=== PATIENT | male | born 1965 | race Caucasian/White ===

== ENCOUNTER 2018-12-31 02:35 | Observation (INO) | payer SELFPAY ==
[2018-12-31 04:23] LABS: ABSOLUTE EOSINOPHILS # (AUTO) 0.1 10^3/uL (0.0-0.6); ABSOLUTE LYMPHOCYTES (AUTO) 0.6 10^3/uL (0.5-4.7); ABSOLUTE MONOCYTES (AUTO) 0.6 10^3/uL (0.1-1.4); ABSOLUTE NEUT (AUTO) 3.4 10^3/uL (1.7-8.2); BASOPHILS % (AUTO) 0.6 % (0-2); EOSINOPHILS % (AUTO) 2.9 % (0-6); HEMATOCRIT 43.3 % (37.9-51.0); HEMOGLOBIN 14.9 g/dL (13.5-17.0); LYMPHOCYTES % (AUTO) 12.8 % (13-45); MEAN CORPUSCULAR HEMOGLOBIN 31.6 pg (27.0-33.4); MEAN CORPUSCULAR HGB CONC 34.4 g/dL (32.0-36.0); MEAN CORPUSCULAR VOLUME 92 fl (80-97); MONOCYTES % (AUTO) 11.9 % (3-13); PLATELET COUNT 101 10^3/uL (150-450); RED BLOOD COUNT 4.71 10^6/uL (4.35-5.55); RED CELL DISTRIBUTION WIDTH 14.5 % (11.5-14.0); SEGMENTED NEUTROPHILS % (AUTO) 71.8 % (42-78); TOTAL CELLS COUNTED % (AUTO) 100 %; WHITE BLOOD COUNT 4.8 10^3/uL (4.0-10.5)
[2018-12-31 04:38] LABS: ALANINE AMINOTRANSFERASE 29 U/L (21-72); ALBUMIN 3.3 g/dL (3.5-5.0); ALKALINE PHOSPHATASE 119 U/L (38-126); ANION GAP 7 (5-19); ASPARTATE AMINO TRANSFERASE 43 U/L (17-59); BILIRUBIN,DIRECT 0.6 mg/dL (0.0-0.4); BILIRUBIN,TOTAL 2.8 mg/dL (0.2-1.3); BLOOD UREA NITROGEN 7 mg/dL (7-20); CALCIUM 8.8 mg/dL (8.4-10.2); CARBON DIOXIDE 25 mmol/L (22-30); CHLORIDE 106 mmol/L (98-107); GLUCOSE 134 mg/dL (75-110); LIPASE 204.3 U/L (23-300); POTASSIUM 4.2 mmol/L (3.6-5.0); SODIUM 137.5 mmol/L (137-145); TOTAL PROTEIN 7.3 g/dL (6.3-8.2)
[2018-12-31 04:41] LABS: APPEARANCE,URINE SLIGHTLY-CLOUDY; BILIRUBIN,URINE SMALL (NEGATIVE); COLOR,URINE AMBER; GLUCOSE, URINE NEGATIVE (NEGATIVE); KETONES,URINE NEGATIVE (NEGATIVE); LEUKOCYTE ESTERASE,URINE NEGATIVE (NEGATIVE); NITRITE,URINE NEGATIVE (NEGATIVE); PROTEIN,URINE 100 mg/dL (NEGATIVE); URINE SPECIFIC GRAVITY 1.026
--- NOTE | 2018-12-31 05:26 | ER Document Report ---
ED General <AVNI SEGOVIA - Last Filed: 12/31/18 05:39> - General TRAVEL OUTSIDE OF THE [place] IN LAST 30 DAYS: No <ISABELL DONOVAN - Last Filed: 12/31/18 07:46> - General Chief Complaint: Abdominal Swelling Stated Complaint: STOMACH PAIN Time Seen by Provider: 12/31/18 05:11 Primary Care Provider: KOMAL,MAIRA [NO LOCAL MD] - Follow up as needed Notes: 53-year-old male with no past medical history presents to the emergency department with chief complaint of abdominal swelling that is gotten progressively worse in the last 13 days. He states that his abdomen is extremely distended and tight and had a has gained 30 pounds in the last 13 days. He has slowly lost his appetite over the last 5 weeks and is having difficulty drinking 2 ensures a day. He says that he has been "self-medicating" with Ex-Lax and prune juice and when he takes those he said he has loose bowel movements. He denies any fevers or chills, complains of some nausea but no vomiting, denies acute shortness of breath or chest pain, denies heavy alcohol use, and denies eating a high fat diet. (ISABELL DONOVAN) Past Medical History - Social History Smoking Status: Current Every Day Smoker Family History: None <ISABELL DONOVAN - Last Filed: 12/31/18 07:46> Review of Systems - Review of Systems Constitutional: See HPI EENT: No symptoms reported Cardiovascular: See HPI Respiratory: See HPI Gastrointestinal: See HPI Genitourinary: No symptoms reported Male Genitourinary: No symptoms reported Musculoskeletal: No symptoms reported Skin: No symptoms reported Hematologic/Lymphatic: No symptoms reported Neurological/Psychological: No symptoms reported <ISABELL DONOVAN - Last Filed: 12/31/18 07:46> Physical Exam <ISABELL DONOVAN - Last Filed: 12/31/18 07:46> - Vital signs Vitals: Temp Pulse Resp BP Pulse Ox 97.9 F 95 16 155/100 H 95 12/31/18 02:44 12/31/18 02:44 12/31/18 02:44 12/31/18 02:44 12/31/18 02:44 - Notes Notes: PHYSICAL EXAMINATION: Reviewed vital signs and charting by RN GENERAL: Alert, interacts well. No acute distress. HEAD: Normocephalic, atraumatic. EYES: Pupils equal and round. Extraocular movements intact. ENT: Oral mucosa moist, tongue midline. NECK: Full range of motion. Trachea midline. LUNGS: Clear to auscultation bilaterally, no wheezes, rales, or rhonchi. No respiratory distress. 1+ bilateral lower extremity pitting edema. HEART: Regular rate and rhythm. No murmur ABDOMEN: Significant distention, abdomen is tense, there is a rash over his right abdomen that is hyperpigmented plaque, bowel sounds present, no fluid wave EXTREMITIES: Moves all 4 extremities spontaneously. No edema, No cyanosis. PSYCH: Normal affect, normal mood. SKIN: Warm, dry, normal turgor. No rashes or lesions noted. (ISABELL DONOVAN) Course - Laboratory Result Diagrams: 12/31/18 04:15 12/31/18 04:15 <AVNI SEGOVIA - Last Filed: 12/31/18 05:39> - Laboratory Result Diagrams: 12/31/18 04:15 12/31/18 04:15 <ISABELL DONOVAN - Last Filed: 12/31/18 07:46> - Re-evaluation Re-evalutation: 12/31/18 05:39 Patient was initially evaluated by the physician assistant professor of anthropology, Lance. He has become evaluate the patient's patient has a large amount of abdominal distention. Nikia ent has abdominal distention which has been worsening over last several weeks. He has what appears to be a very ascitic abdomen. I did do a bedside ultrasound he does have a large amount of fluid in the abdomen consistent with ascites. He has no history of alcohol abuse. Has not seen a doctor in 30 years. He is currently stable. Bilirubin is slightly elevated however the remainder of his liver enzymes are not that high. I have ordered an INR to further evaluate the function of his liver. Have ordered a CT scan with IV contrast. Concerns at this time could be that the patient has undiagnosed ZHENG leading to cirrhosis leading to his ascites. Differential also includes cancer which is leading to his ascites. Dictation of this chart was performed using voice recognition software; th erefore, there may be some unintended grammatical errors. (AVNI SEGOVIA) 12/31/18 07:44 I briefly discussed patient with Heidy Buchanan NP, who accepted patient to medical floor. Please see Dr. Segovia's course above. CT abdomen pelvis showed cirrhotic appearing liver with splenomegaly and significant ascites. INR 1.45. (ISABELL DONOVAN) - Vital Signs Vital signs: Temp Pulse Resp BP Pulse Ox 97.9 F 95 16 155/100 H 95 12/31/18 02:44 12/31/18 02:44 12/31/18 02:44 12/31/18 02:44 12/31/18 02:44 - Laboratory Laboratory results interpreted by me: 12/31/18 12/31/18 12/31/18 04:00 04:15 04:15 RDW 14.5 H Plt Count 101 L Lymphocytes % 12.8 L PT Glucose 134 H Total Bilirubin 2.8 H Direct Bilirubin 0.6 H Albumin 3.3 L Urine Protein 100 H Urine Blood LARGE H Urine Bilirubin SMALL H Urine Urobilinogen 4.0 H 12/31/18 04:15 RDW Plt Count Lymphocytes % PT 17.8 H Glucose Total Bilirubin Direct Bilirubin Albumin Urine Protein Urine Blood Urine Bilirubin Urine Urobilinogen Discharge <AVNI SEGOVIA - Last Filed: 12/31/18 05:39> - Discharge Admitting Provider: Tom (Hospitalist) Unit Admitted: Medical Floor <ISABELL DONOVAN - Last Filed: 12/31/18 07:46> - Discharge Clinical Impression: Abdominal distention, Splenomegaly Ascites Qualifiers: Ascites type: other type Qualified Code(s): R18.8 - Other ascites Condition: Stable Disposition: ADMITTED INPATIENT Referrals: LOCALMD,NO [NO LOCAL MD] - Follow up as needed
[2018-12-31 06:21] LABS: INTERNATIONAL RATION (INR) 1.45; PROTHROMBIN TIME 17.8 SEC (11.4-15.4)
--- NOTE | 2018-12-31 06:39 | RADIOLOGY REPORT (SQ) ---
EXAM DESCRIPTION: CT ABDOMEN PELVIS WITH IV CONTRAST COMPLETED DATE/TME: 12/31/2018 05:37 CLINICAL HISTORY: 53 years, Male, abdominal distention with ascites. CREAT 0.56 COMPARISON: None. TECHNIQUE: Axial CT images of the abdomen and pelvis were obtained after the administration of IV contrast. DLP 3107 Images stored on PACS. All CT scanners at this facility use dose modulation, iterative reconstruction, and/or weight based dosing when appropriate to reduce radiation dose to as low as reasonably achievable (ALARA). [facility]: Dose Right [facility]: CareDose [facility]: Dose Right [facility]: Teradose 4D [facility]: Buy buy tea LIMITATIONS: None. FINDINGS: The lung bases are clear. The liver appears cirrhotic. The gallbladder contains some layering hyperdensity, which may represent stones or sludge. The spleen is enlarged measuring 16.4 cm. The pancreas and adrenal glands appear unremarkable. Both kidneys appear unremarkable with no evidence of hydronephrosis. There are mild atherosclerotic calcifications of the abdominal aorta. There is a large amount of ascites. No free air is detected. No pathologically enlarged lymph nodes are detected. The stomach and small bowel appear unremarkable. The appendix appears unremarkable. Diverticulosis is noted. The urinary bladder and prostate gland are unremarkable. There are no lytic or blastic bone lesions. IMPRESSION: Cirrhotic appearing liver with splenomegaly and a large amount of ascites. Layering hyperdensity within the gallbladder, which may represent stones or sludge. Diverticulosis without evidence of diverticulitis. TECHNICAL DOCUMENTATION: Quality ID # 436: Final reports with documentation of one or more dose reduction techniques (e.g., Automated exposure control, adjustment of the mA and/or kV according to patient size, use of iterative reconstruction technique) copyright 2011 [employer]- All Rights Reserved
[2018-12-31] MEDS ORDERED: ALBUTEROL SULFATE 0.083% NEB 2.5 MG/3 ML AMPUL NEB PRN (08:17)
[2018-12-31] MEDS ORDERED: ONDANSETRON HCL INJ/PF 4 MG/2 ML SDV IV PRN (08:17)
[2018-12-31] MEDS ORDERED: PROMETHAZINE HCL INJ 25 MG/1 ML VIAL IV PRN (08:17)
[2018-12-31] MEDS ORDERED: MAG HYDROX/AL HYDROX/SIMETH SUSP 30 ML UDCUP PO PRN (08:17)
[2018-12-31] MEDS ORDERED: DOCUSATE SODIUM 100 MG CAPSULE PO SCH (10:00)
[2018-12-31 13:28] LABS: FLUID APPEARANCE SLIGHTLY HAZY; FLUID COLOR LIGHT YELLOW; FLUID SOURCE ABDOMEN; FLUID TYPE PERITONEAL; FLUID VISCOSITY LIQUID
[2018-12-31] MEDS: ALBUMIN HUMAN 12.5 GM/50 ML RTUINJ IV SCH ×3 (13:39→15:35)
--- NOTE | 2018-12-31 14:10 | RADIOLOGY REPORT (SQ) ---
EXAM DESCRIPTION: U/S ABD PARACENTESIS COMPLETED DATE/TIME: 12/31/2018 1:20 pm REASON FOR STUDY: ascites COMPARISON CT abdomen pelvis 12/31/2018 LIMITATIONS: None. PROCEDURE: After obtaining informed consent, the patient was brought to the ultrasound suite. The p rocedure was performed with the patient on a gurney. Ultrasound was used to identify a prominent poc ket of ascites in the left lower quadrant. An appropriate access site was selected. The patient was prepped and draped in usual sterile fashion. The access site was anesthetized with 6 mL 1% lidocai ne. A Fabg-Q-Lhbudbbw needle was advanced into the fluid. After aspiration of fluid the needle, the catheter was advanced off the needle into the fluid. A total of 10,000 mL of clear straw-colored fl uid was removed. The patient tolerated the procedure well left the department in satisfactory conditi on. IMPRESSION: Successful ultrasound-guided paracentesis, specimen was sent for culture, cell count, an d cytology. Patient received IV albumin infusion after the large volume paracentesis. COMMENT: Patient medication list reviewed: Yes- Quality ID# [id number]:Eligible professional attests to doc umenting in the medical record they obtained, updated, or reviewed the patient's current medications. TECHNICAL DOCUMENTATION: JOB ID: [id number] [employer]- All Rights Reserved Reading location - IP/workstation name: [email or web address]
[2018-12-31 16:36] VITALS: BP 135/70
--- NOTE | 2018-12-31 19:49 | PDOC H&P ---
History of Present Illness Admission Date/PCP: 12/31/18 07:53 Patient complains of: Abdominal discomfort History of Present Illness: MARIO LIZAMA is a 53 year old male who reports a past medical history significant only for tobacco dependence, however, with admitted low healthcare utilization. Patient presented to the emergency department today with a complai nt of several weeks of progressively worsening abdominal distention resulting in early satiety. Evaluation in the emergency department revealed Mild hypertension but otherwise stable vital signs, normal CBC, INR 1.45, mildly elevated bili and low albumin but normal AST/ALT/alk phos, overall unremarkable urinalysis, and CT of the abdomen demonstrating cirrhotic appearing liver with splenomegaly a large volume ascites. The patient was referred to the hospitalist service for admission and management of the above-stated complaints and findings. Past Medical History Cardiac Medical History: Reports: None Pulmonary Medical History: Reports: None Neurological Medical History: Reports: None Renal/ Medical History: Reports: None Malignancy Medical History: Reports: None Musculoskeltal Medical History: Reports: None Skin Medical History: Reports: None Psychiatric Medical History: Reports: Depression - lost last MAR 2018, Substance Abuse, Tobacco Dependency Traumatic Medical History: Reports: None Hematology: Reports: None Infectious Medical History: Reports: None Past Surgical History Past Surgical History: Reports: Other - reports had an extra toe removed at age 65 years old Social History Information Source: Patient Lives with: Alone Smoking Status: Current Every Day Smoker Cigarettes Packs Per Day: 0 - smokes 3 to 4 cigarettes daily Cigars Per Day: 0 Pipes Per Day: 0 Number of Years Smokin Frequency of Alcohol Use: Rare Hx Recreational Drug Use: Yes Drugs: Marijuana Hx Prescription Drug Abuse: No - Advance Directive Resuscitation Status: Do Not Resuscitate Family History Family History: Reviewed & Not Pertinent Parental Family History Reviewed: Yes Children Family History Reviewed: Yes Sibling(s) Family History Reviewed.: Yes Medication/Allergy Home Medications: No Home Medications 12/31/18 Allergies/Adverse Reactions: strawberry Allergy (Verified 12/31/18 08:07) Review of Systems Constitutional: PRESENT: anorexia. ABSENT: chills, fever(s), headache(s), weight gain, weight loss Eyes: ABSENT: visual disturbances Ears: ABSENT: hearing changes Cardiovascular: PRESENT: edema. ABSENT: chest pain, dyspnea on exertion, orthropnea, palpitations Respiratory: ABSENT: cough, hemoptysis Gastrointestinal: PRESENT: abdominal pain, bloating. ABSENT: constipation, diarrhea, hematemesis, hematochezia, nausea, vomiting Genitourinary: ABSENT: dysuria, hematuria Musculoskeletal: ABSENT: joint swelling Integumentary: ABSENT: rash, wounds Neurological: ABSENT: abnormal gait, abnormal speech, confusion, dizziness, focal weakness, syncope Psychiatric: ABSENT: anxiety, depression, homidical ideation, suicidal ideation Endocrine: ABSENT: cold intolerance, heat intolerance, polydipsia, polyuria Hematologic/Lymphatic: ABSENT: easy bleeding, easy bruising Physical Exam Vital Signs: Temp Pulse Resp BP Pulse Ox 98.3 F 93 16 135/70 H 93 12/31/18 15:12 12/31/18 15:12 12/31/18 15:12 12/31/18 15:12 12/31/18 15:12 Intake & Output 12/30/18 12/31/18 01/01/19 06:59 06:59 06:59 Intake Total 1024 Balance 1024 Weight 124 kg General appearance: PRESENT: no acute distress, cooperative, thin - Loss of subcutaneous fat, bilateral temporal wasting, well-developed, well-nourished Head exam: PRESENT: atraumatic, normocephalic Eye exam: PRESENT: conjunctiva pink, EOMI, PERRLA. ABSENT: scleral icterus Ear exam: PRESENT: normal external ear exam Mouth exam: PRESENT: moist, tongue midline Teeth exam: PRESENT: poor dentation Neck exam: ABSENT: carotid bruit, JVD, lymphadenopathy, thyromegaly Respiratory exam: PRESENT: clear to auscultation carlos, symmetrical, unlabored. ABSENT: rales, rhonchi, wheezes Cardiovascular exam: PRESENT: RRR, +S1, +S2. ABSENT: diastolic murmur, rubs, systolic murmur Pulses: PRESENT: normal dorsalis pedis pul Vascular exam: PRESENT: normal capillary refill GI/Abdominal exam: PRESENT: ascites, diminished bowel sounds, distended, firm. ABSENT: guarding, mass, organolmegaly, rebound, tenderness Rectal exam: PRESENT: deferred Extremities exam: PRESENT: full ROM, pedal edema. ABSENT: calf tenderness, clubbing Neurological exam: PRESENT: alert, awake, oriented to person, oriented to place, oriented to time, oriented to situation, CN II-XII grossly intact. ABSENT: motor sensory deficit Psychiatric exam: PRESENT: appropriate affect, normal mood. ABSENT: homicidal ideation, suicidal ideation Skin exam: PRESENT: dry, intact, warm. ABSENT: cyanosis, rash Results Laboratory Results: 12/31/18 04:15 12/31/18 04:15 12/31/18 12/31/18 12/31/18 04:00 04:15 04:15 WBC 4.8 RBC 4.71 Hgb 14.9 Hct 43.3 MCV 92 MCH 31.6 MCHC 34.4 RDW 14.5 H Plt Count 101 L Seg Neutrophils % 71.8 Lymphocytes % 12.8 L Monocytes % 11.9 Eosinophils % 2.9 Basophils % 0.6 Absolute Neutrophils 3.4 Absolute Lymphocytes 0.6 Absolute Monocytes 0.6 Absolute Eosinophils 0.1 Absolute Basophils 0.0 Sodium 137.5 Potassium 4.2 Chloride 106 Carbon Dioxide 25 Anion Gap 7 BUN 7 Creatinine 0.56 Est GFR ( Amer) > 60 Est GFR (Non-Af Amer) > 60 Glucose 134 H Calcium 8.8 Total Bilirubin 2.8 H AST 43 ALT 29 Alkaline Phosphatase 119 Total Protein 7.3 Albumin 3.3 L Lipase 204.3 Urine Color LALO Urine Appearance SLIGHTLY-CLOUDY Urine pH 5.0 Ur Specific Colora 1.026 Urine Protein 100 H Urine Glucose (UA) NEGATIVE Urine Ketones NEGATIVE Urine Blood LARGE H Urine Nitrite NEGATIVE Ur Leukocyte Esterase NEGATIVE Urine WBC (Auto) 4 Urine RBC (Auto) 131 Fluid Type Fluid Source Fluid Color Fluid Appearance Fluid Viscosity Fluid WBC Fluid RBC 12/31/18 11:25 WBC RBC Hgb Hct MCV MCH MCHC RDW Plt Count Seg Neutrophils % Lymphocytes % Monocytes % Eosinophils % Basophils % Absolute Neutrophils Absolute Lymphocytes Absolute Monocytes Absolute Eosinophils Absolute Basophils Sodium Potassium Chloride Carbon Dioxide Anion Gap BUN Creatinine Est GFR ( Amer) Est GFR (Non-Af Amer) Glucose Calcium Total Bilirubin AST ALT Alkaline Phosphatase Total Protein Albumin Lipase Urine Color Urine Appearance Urine pH Ur Specific Colora Urine Protein Urine Glucose (UA) Urine Ketones Urine Blood Urine Nitrite Ur Leukocyte Esterase Urine WBC (Auto) Urine RBC (Auto) Fluid Type PERITONEAL Fluid Source ABDOMEN Fluid Color LIGHT YELLOW Fluid Appearance SLIGHTLY HAZY Fluid Viscosity LIQUID Fluid WBC 234 Fluid RBC 1025 12/31/18 04:15 NT-Pro-B Natriuret Pep 99 Impressions: Abdomen/Pelvis CT 12/31/18 05:37 IMPRESSION: Cirrhotic appearing liver with splenomegaly and a large amount of ascites. Layering hyperdensity within the gallbladder, which may represent stones or sludge. Diverticulosis without evidence of diverticulitis. TECHNICAL DOCUMENTATION: Quality ID # 436: Final reports with documentation of one or more dose reduction techniques (e.g., Automated exposure control, adjustment of the mA and/or kV according to patient size, use of iterative reconstruction technique) copyright 2011 [employer]- All Rights Reserved Paracentesis Ultrasound 12/31/18 08:15 IMPRESSION: Successful ultrasound-guided paracentesis, specimen was sent for culture, cell count, and cytology. Patient received IV albumin infusion after the large volume paracentesis. Assessment and Plan - Diagnosis (1) Cirrhosis Qualifiers: Hepatic cirrhosis type: unspecified hepatic cirrhosis Ascites presence: with ascites Qualified Code(s): K74.60 - Unspecified cirrhosis of liver; R18.8 - Other ascites Is this a current diagnosis for this admission?: Yes Plan: Patient with reported new diagnosis of cirrhosis; does admit to poor healthcare utilization. Patient has not seen a healthcare provider in several decades. CT of the abdomen demonstrating cirrhotic appearing liver with spinal likely a large volume ascites. AST 43, ALT 29, Total Bili 2.8, Direct Bili 0.6, Albumin 3.3 Hepatitis panel is pending Patient is admitted to the medical floor. Received paracentesis today with 10 L clear lalo fluid pulled off. Initial laboratory evaluation is unremarkable; Gram stain and culture pending. Received post-procedure albumin Consider need to start lasix/spironolactone Consider GI consultation; unfortunately none available today. (2) Ascites Qualifiers: Ascites type: other type Qualified Code(s): R18.8 - Other ascites Is this a current diagnosis for this admission?: Yes Plan: As above (3) Splenomegaly Is this a current diagnosis for this admission?: Yes Plan: Spleen is likely enlarged due to engorgement with blood from an increase in parenchymal liver disease - ascites. Monitor for evidence of infectious process. Consider oncology referral. Fall precautions. (4) Tobacco abuse Is this a current diagnosis for this admission?: Yes Plan: Smoking cessation strongly encouraged. Nicotine or placement therapies provided. - Time Time Spent with patient: 35 or more minutes Medications reviewed and adjusted accordingly: Yes Anticipated discharge: Home Within: within 72 hours
--- NOTE | 2018-12-31 19:53 | Left Against Medical Advice ---
Against Medical Advice Admission Date/Time: 12/31/18 07:53 Primary Care Provider: Date of Patient Emigration: 12/31/18 - Diagnosis: (1) Cirrhosis Is this a current diagnosis for this admission?: Yes (2) Ascites Is this a current diagnosis for this admission?: Yes (3) Splenomegaly Is this a current diagnosis for this admission?: Yes (4) Tobacco abuse Is this a current diagnosis for this admission?: Yes - Summary: Summary: Please see Admission and Progress Notes as well. MARIO LIZAMA is a 53 M, who LEFT AGAINST MEDICAL ADVICE. The Patient was admitted on 12/31/18 07:53 for ascites with new diagnosis of liver cirrhosis. Patient underwent paracentesis with removal of 10 L of fluid. He did receive postprocedure albumin. This afternoon, nursing informed me that the patient was leaving AGAINST MEDICAL ADVICE because he was concerned about his dog that was left out in the heat. I did attempt to speak with the patient by phone as it was clear that he was leaving imminently. Unfortunately he declined to speak with me at that time. The patient did call back late this evening from home. I did have the opportunity to discuss with him concern regarding low blood pressure. Patient was advised to remain indoors, avoid strenuous activity/heat exposure, adequa tely hydrate, and to return to the emergency department immediately for any concerning symptoms including dizziness, shortness of breath, palpitations, chest pain, falls. He was also advised of the importance of establishing with a primary care provider to follow-up on his liver cirrhosis and providing further care in the future. Patient was encouraged to return for any concerning symptoms and assure that he would not be treated poorly due to leaving AGAINST MEDICAL ADVICE (patient was quite apologetic and concerned that we were unhappy with him).
[2019-01-01] MEDS ORDERED: PANTOPRAZOLE SODIUM 40 MG TABLET.DR PO SCH (06:00)
[2019-01-01 11:37] LABS: HEPATITIS A AB IGM Negative (Negative); HEPATITIS B CORE AB IGM Negative (Negative); HEPATITS B SURFACE ANTIGEN Negative (Negative)
[2019-01-01 16:05] LABS: HEPATITIS C VIRUS ANTIBODY 0.2 s/co ratio (0.0-0.9)
== END 2018-12-31 16:40 | disposition left against medical advice (07) ==
LOC: ER 02:35 → EH 07:53 → INTOOBSV 07:53 → 4N 09:10
PROVIDERS: ADMIT Internal Medicine; ATTEND Internal Medicine
PROC: 0W9G3ZX Drainage of Peritoneal Cavity, Percutaneous Approach, Diagnostic (ICD-10-PCS; principal; 2018-12-31)
PROC: BW40ZZZ Ultrasonography of Abdomen (ICD-10-PCS; 2018-12-31)
DX: K74.60 Unspecified cirrhosis of liver (principal); R18.8 Other ascites; R16.1 Splenomegaly, not elsewhere classified; I10 Essential (primary) hypertension; R63.0 Anorexia; K57.90 Diverticulosis of intestine, part unspecified, without perforation or abscess without bleeding; L81.8 Other specified disorders of pigmentation; R21 Rash and other nonspecific skin eruption; F17.210 Nicotine dependence, cigarettes, uncomplicated; Z66 Do not resuscitate
CPT/HCPCS: 99285; 36415; 87205; 87070; 83690; 85025; 85610; 89050; 87075; 80053; 81001; 80074; 83880; 88162; 88305 ×2; 49083 ×2; 74177; G0378 ×2; P9047

== ENCOUNTER 2019-01-05 16:04 | Emergency (ER) | payer SELFPAY ==
--- NOTE | 2019-01-05 16:20 | ER Document Report ---
Addendum entered and electronically signed by JOAQUINA CORREIA PA-C 01/05/19 16:35: Course - Re-evaluation Re-evalutation: 01/05/19 16:35 Patient refused chest x-ray stating "I know it is from my ascites" - Vital Signs Vital signs: Temp Pulse Resp BP Pulse Ox 98.6 F 112 H 18 160/98 H 95 01/05/19 16:27 01/05/19 16:27 01/05/19 16:27 01/05/19 16:27 01/05/19 16:27 Original Note: ED Medical Screen (RME) - General Chief Complaint: Breathing Difficulty Stated Complaint: BREATHING PROBLEMS Time Seen by Provider: 01/05/19 16:16 Mode of Arrival: Wheelchair Information source: Patient Notes: Patient is a 53-year-old male with a history of ascites, cirrhosis, just having paracentesis last week who states that he started getting short of breath again yesterday. Patient states that his belly has "filled back up." He denies chest pain. TRAVEL OUTSIDE OF THE [place] IN LAST 30 DAYS: No - Related Data Allergies/Adverse Reactions: strawberry Allergy (Verified 01/05/19 16:06) Past Medical History - General Information source: Patient Renal/ Medical History: Denies: Hx Peritoneal Dialysis Psychiatric Medical History: Reports: Hx Depression - lost last MAR 2018 Past Surgical History: Reports: Other - reports had an extra toe removed at age 65 years old Review of Systems - Review of Systems Respiratory: See HPI Gastrointestinal: See HPI Physical Exam - Notes Notes: PHYSICAL EXAMINATION: GENERAL: Mildly jaundiced appearing in no acute distress. LUNGS: CTAB and equal. No wheezes rales or rhonchi. ABDOMEN: Distended
[2019-01-05 17:26] LABS: ABSOLUTE EOSINOPHILS # (AUTO) 0.1 10^3/uL (0.0-0.6); ABSOLUTE LYMPHOCYTES (AUTO) 0.4 10^3/uL (0.5-4.7); ABSOLUTE MONOCYTES (AUTO) 0.4 10^3/uL (0.1-1.4); ABSOLUTE NEUT (AUTO) 2.9 10^3/uL (1.7-8.2); EOSINOPHILS % (AUTO) 2.8 % (0-6); HEMATOCRIT 41.4 % (37.9-51.0); HEMOGLOBIN 13.8 g/dL (13.5-17.0); LYMPHOCYTES % (AUTO) 9.9 % (13-45); MEAN CORPUSCULAR HEMOGLOBIN 30.6 pg (27.0-33.4); MEAN CORPUSCULAR HGB CONC 33.3 g/dL (32.0-36.0); MEAN CORPUSCULAR VOLUME 92 fl (80-97); MONOCYTES % (AUTO) 9.8 % (3-13); RED BLOOD COUNT 4.51 10^6/uL (4.35-5.55); RED CELL DISTRIBUTION WIDTH 14.3 % (11.5-14.0); SEGMENTED NEUTROPHILS % (AUTO) 76.5 % (42-78); TOTAL CELLS COUNTED % (AUTO) 100 %; WHITE BLOOD COUNT 3.8 10^3/uL (4.0-10.5)
[2019-01-05 17:32] LABS: INTERNATIONAL RATION (INR) 1.47
[2019-01-05 17:36] LABS: ALANINE AMINOTRANSFERASE 31 U/L (21-72); ALBUMIN 2.8 g/dL (3.5-5.0); ALKALINE PHOSPHATASE 99 U/L (38-126); ANION GAP 7 (5-19); ASPARTATE AMINO TRANSFERASE 48 U/L (17-59); BILIRUBIN,DIRECT 0.4 mg/dL (0.0-0.4); BLOOD UREA NITROGEN 9 mg/dL (7-20); CALCIUM 8.2 mg/dL (8.4-10.2); CARBON DIOXIDE 23 mmol/L (22-30); CHLORIDE 106 mmol/L (98-107); GLUCOSE 204 mg/dL (75-110); POTASSIUM 4.4 mmol/L (3.6-5.0); TOTAL PROTEIN 6.5 g/dL (6.3-8.2)
[2019-01-05 18:11] LABS: PLATELET COUNT 88 10^3/uL (150-450)
--- NOTE | 2019-01-05 20:34 | ER Document Report ---
ED General - General Chief Complaint: Breathing Difficulty Stated Complaint: BREATHING PROBLEMS Time Seen by Provider: 01/05/19 16:16 Mode of Arrival: Wheelchair Notes: 53-year-old male to emergency part chief complaint of shortness of breath. Patient states that he was admitted to the hospital 5 days ago. Had 10 L of fluid taken off his abdomen. Did not know he had anything wrong. No to see his feet or swelling a lot recently but thought it was because he was drinking more water because it was hot outside. States that he has seen in the mirror that he looks more gaunt. His muscles seem to be wasting. States that he has never drunk anything more than about 6 beers a year. Never had a diagnosis of hepat itis. Last time he was sick was 30 years ago. States that he felt pretty good for a few days after the fluid was taken off but now it is back to where it was before. Patient was admitted to the hospital before but left AMA because there were issues about needing to get his dogs taking care of so he left. TRAVEL OUTSIDE OF THE [place] IN LAST 30 DAYS: No - HPI Onset: Other - Several weeks Onset/Duration: Gradual, Worse Quality of pain: Dull Severity: Mild Pain Level: Denies Associated symptoms: Shortness of breath Relieved by: Supine - Related Data Allergies/Adverse Reactions: strawberry Allergy (Verified 01/05/19 16:06) Past Medical History - General Information source: Patient - Social History Smoking Status: Never Smoker Chew tobacco use (# tins/day): No Frequency of alcohol use: None Drug Abuse: None Lives with: Family Family History: Reviewed & Not Pertinent Patient has suicidal ideation: No Patient has homicidal ideation: No - Medical History Medical History: Negative Renal/ Medical History: Denies: Hx Peritoneal Dialysis Psychiatric Medical History: Reports: Hx Depression - lost last MAR 2018 Past Surgical History: Reports: Other - reports had an extra toe removed at age 65 years old Review of Systems - Review of Systems Notes: Constitutional: denies: Chills, Diaphoresis, Fever, Malaise, Weakness EENT: denies: Eye discharge, Blurred vision, Tearing, Double vision, Nose congestion, Nose discharge, Throat swelling, Mouth pain Cardiovascular: denies: Palpitations, Heart racing, Orthopnea,+ Dyspnea, -Chest pain Respiratory: denies: Cough, Hurts to breathe, Wheezing, +Shortness of breath Gastrointestinal: denies: Abdominal pain, Diarrhea, Nausea, Vomiting, Black stools, bright red blood in stool. Complaining of abdominal distention. Genitourinary: denies: Burning, Dysuria, Discharge, Frequency, Flank pain, Hematuria Musculoskeletal: denies: Joint pain, Joint swelling, Muscle pain, Muscle stiffness, back pain Hematologic/Lymphatic: denies: Anemia, Easy bleeding, Easy bruising, Blood clots Neurological/Psychological: denies: Confusion, Dementia, Depression, Loss of consciousness Skin: No lesions, no masses, no skin breakdown, no abscesses Physical Exam - Vital signs Vitals: Temp Pulse Resp BP Pulse Ox 98.6 F 112 H 18 160/98 H 95 01/05/19 16:27 01/05/19 16:27 01/05/19 16:27 01/05/19 16:27 01/05/19 16:27 Interpretation: Normal, Tachycardic. No: Hypoxic - General General appearance: Appears well, Alert - HEENT Head: Normocephalic, Atraumatic Eyes: Normal Pupils: PERRL - Respiratory Respiratory status: No respiratory distress Chest status: Nontender Breath sounds: Normal Chest palpation: Normal - Cardiovascular Rhythm: Regular Heart sounds: Normal auscultation Murmur: No - Abdominal Inspection: Normal Distension: Distended, Fluid wave Bowel sounds: Normal Tenderness: Nontender Organomegaly: Hepatomegaly, Splenomegaly - Back Back: Normal, Nontender - Extremities General upper extremity: Normal inspection, Nontender, Normal color, Normal ROM, Normal temperature General lower extremity: Normal inspection, Nontender, Edema - Pitting edema bilateral lower extremities., Normal color, Normal ROM, Normal temperature, Normal weight bearing. No: Andres's sign - Neurological Neuro grossly intact: Yes Cognition: Normal Orientation: AAOx4 [place] Coma Scale Eye Opening: Spontaneous [place] Coma Scale Verbal: Oriented Oc Coma Scale Motor: Obeys Commands Oc Coma Scale Total: 15 Speech: Normal Motor strength normal: LUE, RUE, LLE, RLE Sensory: Normal - Psychological Associated symptoms: Normal affect, Normal mood - Skin Skin Temperature: Warm Skin Moisture: Dry Skin Color: Normal Course - Re-evaluation Re-evalutation: 01/05/19 20:36 Patient with obvious liver failure. Has thrombocytopenia but not severe. Has a leukopenia. Review of prior labs revealed that his hepatitis A, B, and C was negative. 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 Radiology is not here at this time. May attempt a paracentesis centesis with ultrasound at the bedside to give patient temporary relief versus admitting him to the hospital. 01/05/19 22:41 I did call [facility] but they do not have a liver specialist. I have called [facility] for transfer. Patient is tolerating the paracentesis well. Patient is informed me however after telling him that I would transfer him to [facility] that he is not going. Does not want to be transferred now. I have advised against that as he needs an expedited work-up but patient has refused. At this time sean FARR. I have signed the patient over to my colleague Dr. Rohan Lopez and he will remove the peritoneal catheter and reassess prior to discharge. - Vital Signs Vital signs: Temp Pulse Resp BP Pulse Ox 98.5 F 112 H 19 161/103 H 99 01/05/19 18:49 01/05/19 16:27 01/05/19 18:49 01/05/19 18:49 01/05/19 18:49 - Laboratory Result Diagrams: 01/05/19 16:55 01/05/19 16:55 Laboratory results interpreted by me: 01/05/19 01/05/19 01/05/19 16:55 16:55 16:55 WBC 3.8 L RDW 14.3 H Plt Count 88 L Lymphocytes % 9.9 L Absolute Lymphocytes 0.4 L PT 18.0 H Sodium 136.4 L Glucose 204 H Calcium 8.2 L Total Bilirubin 2.0 H Albumin 2.8 L Procedures - Paracentesis LLQ Time completed: 22:12 Consent obtained: Yes Paracentesis pre-procedure: Sterile PPE donned, Chloraprep applied, Sterile drapes applied Paracentesis location: LLQ Anesthetic type: 1% Lidocaine mL's of anesthetic: 10 Amount/type of drainage: 4 liters straw colored clear fluid Number of attempts: 1 Ultrasound guided: Yes Complications: No Discharge - Discharge Clinical Impression: Ascites Qualifiers: Ascites type: other type Qualified Code(s): R18.8 - Other ascites Condition: Good Disposition: HOME, SELF-CARE Additional Instructions: You have had fluid taken off of your abdomen. We do not know why you having this particular condition but most of the time this is due to some sort of liver disease. A possible cause is called nonalcoholic steatohepatitis (ZHENG). You need to be seen by a liver specialist. An expedited work-up was offered today by transferring you however you have refused. This does not mean that you cannot come back. I am giving you a follow-up information sheet for a billet inspector. It would be very important that you make an appointment and follow-up with a billet inspector as soon as possible. In the event that you develop a fever please return. In the event that you develop any significant bleeding from the paracentesis site then please return. Return for any worsening symptoms or concerns. Prescriptions: Furosemide [Lasix 20 mg Tablet] 20 mg PO QAM 30 Days #30 tablet Propranolol HCl [Inderal 20 mg Tablet] 20 mg PO Q12 30 Days #60 tab Referrals: MICKY LOYOLA MD [ACTIVE STAFF] - Follow up in 3-5 days
[2019-01-05] MEDS ORDERED: LIDOCAINE 1% INJ-PF (10 MG/ML) 30 ML SDV INJ ONE (21:08)
[2019-01-05] MEDS ORDERED: FUROSEMIDE 20 MG TABLET PO ONE (22:45)
[2019-01-05 23:25] VITALS: BP 148/83
[2019-01-06 01:09] LABS: FLUID TYPE PERITONEAL
[2019-01-06 01:10] LABS: FLUID APPEARANCE HAZY; FLUID COLOR YELLOW; FLUID SOURCE ABDOMEN; FLUID VISCOSITY LIQUID
[2019-01-06 12:53] LABS: PATH REVIEW PATHOLOGIST REVIEWED
== END 2019-01-05 23:24 | disposition home or self-care (01) ==
LOC: ER 16:04
DX: R18.8 Other ascites (principal); K72.90 Hepatic failure, unspecified without coma; D69.6 Thrombocytopenia, unspecified; R06.02 Shortness of breath; Z91.018 Allergy to other foods; Z53.20 Procedure and treatment not carried out because of patient's decision for unspecified reasons
CPT/HCPCS: 99284; 36415; 85025; 85610; 89050; 80053; 49082; C1751; J3490